=== PATIENT | female | born 1970 | race Two or more races ===

== ENCOUNTER → 2025-04-13 | Outpatient (CLI) | payer OTHER, SELFPAY ==
--- NOTE | 2025-04-13 08:45 | XR_ITS ---
Examination: Breast ultrasound, unilateral, right complete Date and time of exam: April 13, 2025 0859 hours INDICATIONS: Mammogram February 13, 2025 14 mm focal asymmetry upper outer right breast Technique: Real-time abdi scale ultrasonographic imaging performed right breast including all 4 quadrants as well as nipple retroareolar and axillary region. Findings: No cystic or solid mass IMPRESSION: BI-RADS Category 1: Negative study
--- NOTE | 2025-04-13 09:45 | XR_ITS ---
Examination: Diagnostic digital mammography, unilateral, right Computer aided detection 3-D breast Tomosynthesis, unilateral Date and time of exam: April 13, 2025 0919 hours INDICATIONS: Outside mammogram February 13, 2025, 14 mm focal asymmetry upper outer right breast Technique: Nonmagnified MLO, CC views of the right breast have been obtained, reconstructed from 3-D Tomosynthesis images. R2 computer aided detection program utilized for evaluation of suspicious masses and/or abnormal calcifications. 3-D Tomosynthesis images obtained. Findings: Scattered areas of fibroglandular density Focal asymmetry persists upper outer right breast, probably benign Impression: BI-RADS category 3: Probably benign findings Recommend 1 additional 6 month right mammogram follow-up
== END | disposition home or self-care (01) ==
LOC: CDIM 08:19
PROVIDERS: PCP Physician Assistant; Referring Provider Physician Assistant; Visit Provider Physician Assistant
DX: R92.331 Mammographic heterogeneous density, right breast (principal)
CPT/HCPCS: 76641; 77061; 77065; G0279